=== PATIENT | male | born 1970 | race African-American/Black ===

== ENCOUNTER 2018-10-30 13:34 | Emergency (ER) | payer MEDICAID, SELFPAY ==
[~2018-10-30] VITALS: Ht 188 cm; Wt 68.0 kg
[2018-10-30] MEDS ORDERED: NKM (13:48)
[2018-10-30 13:58] VITALS: BP 129/79
--- NOTE | 2018-10-30 13:59 | NUR ---
ED Nurse Note: Pt has been experiencing penile white discharge with fishy odor x 1 week. AOx4, VSS [place]. Will cont to monitor.
[2018-10-30] MEDS ORDERED: Lidocaine 1% MPF 10mg/ml 5ml INJ ONE (14:00)
[2018-10-30] MEDS ORDERED: Azithromycin 250mg tab ORAL ONE (14:00)
--- NOTE | 2018-10-30 14:04 | Emergency Room Report ---
History of Present Illness General Chief Complaint: Male Urogenital Problems Source: Patient Present Illness HPI 48-year-old male with no significant past medical history here requesting to be tested for chlamydia and gonorrhea and is requesting prophylactic antibiotic treatment as he had recent exposure to an unknown sexually transmitted diseases. Patient is here with his significant other was also complaining of vaginal discharge. Patient is complaining of clear penile discharge denies dysuria urinary frequency. Denies fever and chills. Denies abdominal pain, nausea vomiting, chest pain, shortness of breath, and all other associated symptoms. Has not taken medication for his symptoms. Allergies: Coded Allergies: No Known Allergies (Unverified , 10/30/18) Patient History Past Medical History: see triage record Past Surgical History: unable to obtain Pertinent Family History: none Immunizations: UTD Reviewed Nursing Documentation: PMH: Agreed; PSxH: Agreed Review of Systems All Other Systems: negative except mentioned in HPI Physical Exam Vital Signs Date Time Temp Pulse Resp B/P (MAP) Pulse Ox O2 Delivery O2 Flow Rate FiO2 10/30/18 13:46 98.1 78 19 130/86 (101) 99 Room Air Sp02 EP Interpretation: reviewed, normal General Appearance: normal inspection, well appearing, no apparent distress Head: normocephalic, atraumatic Eyes: bilateral eye normal inspection, bilateral eye PERRL ENT: normal ENT inspection, hearing grossly normal, normal pharynx Neck: normal inspection, supple Respiratory: normal inspection, chest non-tender, lungs clear, no rhonchi, no wheezing Cardiovascular #1: normal inspection, regular rate, rhythm, no edema Gastrointestinal: normal inspection, non tender, soft Rectal: deferred Genitourinary: no CVA tenderness Musculoskeletal: back normal Neurologic: normal inspection, alert, oriented x3 Psychiatric: normal inspection, judgement/insight normal Skin: no rash Lymphatic: normal inspection, no adenopathy Medical Decision Making PA Attestation All diagnoses and treatment plans were reviewed and discussed with my supervising physician Dr. Kurtz Diagnostic Impression: Primary Impression: STD exposure ER Course 48-year-old male with no significant past medical history here requesting to be tested for chlamydia and gonorrhea and is requesting prophylactic antibiotic treatment as he had recent exposure to an unknown sexually transmitted diseases. Patient is here with his significant other was also complaining of vaginal discharge. Patient is complaining of clear penile discharge denies dysuria urinary frequency. Denies fever and chills. Denies abdominal pain, nausea vomiting, chest pain, shortness of breath, and all other associated symptoms. Has not taken medication for his symptoms. Ddx considered but are not limited to: vaginitis, yeast infection, BV, chlamydia , Gohnorrea, syphylis, HIV, herpes 1 or 2 Vital signs: are WNL, pt. is afebrile H&PE are most consistent with : STD exposure possibly gonorrhea or chlamydia ORDERS: UA, chlamydia and gonorrhea, Rocephin, azithromycin ED INTERVENTIONS: Rocephin IM and azithromycin were given DISCHARGE: At this time pt. is stable for d/c to home. Will provide printed patient care instructions, and any necessary prescriptions. Care plan and follow up instructions have been discussed with the patient prior to discharge. Pending results for chlamydia and gonorrhea follow-up with her primary care provider if symptoms continue if patient's significant other test is positive for trichomoniasis, patient will also be tested and treated. Last Vital Signs Date Time Temp Pulse Resp B/P (MAP) Pulse Ox O2 Delivery O2 Flow Rate FiO2 10/30/18 13:58 98.1 85 20 129/79 99 Room Air Disposition: HOME, SELF-CARE Condition: Stable Patient Instructions: Chlamydia, Male, Gonorrhea Additional Instructions: Take medication as directed follow-up with your primary care provider if symptoms do not improve Shivam Costello Oct 30, 2018 14:04
[2018-10-30 14:30] VITALS: BP 129/79
--- NOTE | 2018-10-30 14:30 | NUR ---
ER DISCHARGE NOTE: Patient is cleared to be discharged per ERMD, pt is aox4, on room air, with stable vital signs. pt was given dc and prescription instructions, pt was able to verbalize understanding, pt id band removed. pt is able to ambulate with steady gait. pt took all belongings.
[2018-10-30 14:37] LABS: APPEARANCE,URINE CLEAR; BILIRUBIN, URINE NEGATIVE (NEGATIVE); COLOR,URINE PALE YELLOW; GLUCOSE, URINE (UA) NEGATIVE (NEGATIVE); KETONES,URINE NEGATIVE (NEGATIVE); LEUKOCYTE ESTERASE ,URINE 1+ (NEGATIVE); NITRITE,URINE NEGATIVE (NEGATIVE); PH,URINE 6.5 (4.5-8.0); PROTEIN,URINE NEGATIVE (NEGATIVE); UROBILINOGEN,URINE NORMAL MG/DL (0.0-1.0)
== END 2018-10-30 14:30 | disposition home or self-care (01) ==
LOC: EMR 14:21
DX: R36.9 Urethral discharge, unspecified (principal); Z20.2 Contact with and (suspected) exposure to infections with a predominantly sexual mode of transmission
CPT/HCPCS: 81001; 87491; 87590; 96372; 96374; 99284; J0696; Q0144

== ENCOUNTER 2019-01-04 17:45 | Emergency (ER) | payer MEDICAID ==
[~2019-01-04] VITALS: Ht 188 cm; Wt 72.6 kg
[~2019-01-04 17:45] MED LIST: NKM
[2019-01-04 17:55] VITALS: BP 142/98
--- NOTE | 2019-01-04 17:55 | NUR ---
ED Nurse Note: Patient wheeled into ED accompanied by c/o fall, patient states that he fell while trying to get a basketball, states that the height of the fence was 10 feet tall, complains of generalized left sided body pain, unable to extend arm without pain. patient is alert and oriented x4, when patient sneezed, patient did have blood tinged output. will continue to monitor
--- NOTE | 2019-01-04 19:00 | NUR ---
HAND-OFF: Report given to ELBERT Pina
--- NOTE | 2019-01-04 19:27 | Diagnostic Imaging Report ---
Indication: Pain status post injury/trauma Technique: Continuous helical CT scanning of the head was performed utilizing automated exposure control without intravenous contrast material. Axial and coronal reconstructions were obtained. Comparison: None CT dose: Total DLP 1457.7 mGycm; CTDI vol 62 mGy Findings: There is no acute intracranial hemorrhage, mass effect or cortical edema. There is no shift of the midline structures. Johnson-white differentiation appears preserved. The ventricles, cisterns and sulci are within normal limits for age. There is soft tissue swelling of the left parietal scalp. There is no depressed skull fracture. Fractures of the left zygomatic arch and left lateral orbital wall are noted. Mucosal thickening versus fluid noted within the sphenoid sinuses and left ethmoid air cells and left maxillary sinus. Mastoid air cells clear. IMPRESSION: No evidence of acute intracranial hemorrhage, mass effect or cortical edema. Fracture of the left zygoma partially visualized. Please see dedicated reports of concurrent CT of the facial bones. This corresponds with the statrad preliminary report. The CT scanner at [facility] is accredited by the [employer] and the scans are performed using protocols designed to limit radiation exposure to as low as reasonably achievable to attain images of sufficient resolution adequate for diagnostic evaluation.
--- NOTE | 2019-01-04 19:31 | Diagnostic Imaging Report ---
Indication: Facial pain status post injury Technique: CT maxillofacial was performed utilizing automated exposure control without intravenous contrast material. Axial and coronal images were generated. CT dose: Total DLP 567.2 mGycm; CTDI vol 25.1 mGy Comparison: None Findings: There is an acute nondisplaced fracture through the left zygomatic arch. There is also acute fracture through the posterior wall of the left maxillary sinus with some adjacent gas in the soft tissues and fluid in the left maxillary sinus. Some fluid is also noted within left-sided ethmoid air cells. Globes are symmetric in appearance. There is no infiltration of the orbital fat bilaterally. Extraocular muscles and optic nerves are symmetric in appearance bilaterally. IMPRESSION: Acute nondisplaced fractures through the left zygomatic arch and posterior wall of the left maxillary sinus. This corresponds with the statrad preliminary report. The CT scanner at [facility] is accredited by the [employer] and the scans are performed using protocols designed to limit radiation exposure to as low as reasonably achievable to attain images of sufficient resolution adequate for diagnostic evaluation.
--- NOTE | 2019-01-04 19:32 | Emergency Room Report ---
History of Present Illness General Chief Complaint: Multiple Trauma/Fall Source: Patient Present Illness HPI This patient states that he fell about 10 feet. He was climbing a gait to get a basketball out of a tree and lost his balance. He states that he hit his head and has a headache. He also complains of a nosebleed. He complains of pain in his left upper arm, elbow and forearm. He denies chest pain or shortness of breath. He denies abdominal pain. He denies right arm or lower extremity pain. He denies loss of consciousness. He denies weakness. He denies tingling or numbness. He has no other complaints. Allergies: Coded Allergies: No Known Allergies (Unverified , 10/30/18) Patient History Past Medical History: none, see triage record Social History: Denies: smoking, alcohol use, drug use Reviewed Nursing Documentation: PMH: Agreed; PSxH: Agreed Nursing Documentation-PMH Past Medical History: No History, Except For Review of Systems All Other Systems: negative except mentioned in HPI Physical Exam Vital Signs Date Time Temp Pulse Resp B/P (MAP) Pulse Ox O2 Delivery O2 Flow Rate FiO2 01/04/19 17:50 97.9 73 18 142/98 (113) 99 Room Air Sp02 EP Interpretation: reviewed, normal General Appearance: no apparent distress, alert, GCS 15, non-toxic Head: normocephalic, other - Swelling over L. parietal area. Eyes: bilateral eye normal inspection, bilateral eye PERRL ENT: hearing grossly normal, normal pharynx, no angioedema, normal voice, other - +nosebleed Neck: full range of motion, supple/symm/no masses, tender lateral Respiratory: chest non-tender, lungs clear, normal breath sounds, no respiratory distress, no retraction, no accessory muscle use, speaking full sentences Cardiovascular #1: regular rate, rhythm, no edema Gastrointestinal: normal bowel sounds, non tender, soft, non-distended, no guarding, no rebound Rectal: deferred Musculoskeletal: back normal, tender - TTP over L. elbow, L. humerus and L. forearm. PT will not move elbow secondary to pain. Neurologic: alert, oriented x3, responsive, motor strength/tone normal, sensory intact, speech normal Psychiatric: judgement/insight normal, memory normal, mood/affect normal, no suicidal/homicidal ideation Skin: normal color Medical Decision Making Diagnostic Impression: Primary Impression: Scalp hematoma Additional Impressions: Closed head injury Maxillary sinus fracture Zygomatic fracture, left side, initial encounter for closed fracture Radial head fracture ER Course This patient fell from a [address] of the head shows no intracranial bleed. However, CT face did show a zygomatic bone fracture and a maxillary sinus fracture. These are nondisplaced. I did discuss the case with on-call facial plastics and this will heal on its own spontaneously. As a precaution I did give IV Ancef. I will place the patient on a course of oral antibiotics for prophylaxis. There is no surgical indication. The patient is also found to have a left radial head fracture. He was placed in a long-arm splint and sling. He was instructed to follow-up closely with orthopedics. Overall, the patient is well-appearing. He is given close return precautions and follow-up instructions. Laboratory Tests Test 01/04/19 18:56 White Blood Count 10.3 K/UL (4.8-10.8) Red Blood Count 4.83 M/UL (4.70-6.10) Hemoglobin 16.1 G/DL (14.2-18.0) Hematocrit 45.6 % (42.0-52.0) Mean Corpuscular Volume 94 FL (80-99) Mean Corpuscular Hemoglobin 33.4 PG (27.0-31.0) H Mean Corpuscular Hemoglobin Concent 35.4 G/DL (32.0-36.0) Red Cell Distribution Width 10.8 % (11.6-14.8) L Platelet Count 253 K/UL (150-450) Mean Platelet Volume 5.8 FL (6.5-10.1) L Neutrophils (%) (Auto) 79.5 % (45.0-75.0) H Lymphocytes (%) (Auto) 13.4 % (20.0-45.0) L Monocytes (%) (Auto) 6.1 % (1.0-10.0) Eosinophils (%) (Auto) 0.4 % (0.0-3.0) Basophils (%) (Auto) 0.6 % (0.0-2.0) Prothrombin Time 10.7 SEC (9.30-11.50) Prothrombin Time INR 1.0 (0.9-1.1) PTT 25 SEC (23-33) Sodium Level 145 MMOL/L (136-145) Potassium Level 4.0 MMOL/L (3.5-5.1) Chloride Level 107 MMOL/L (98-107) Carbon Dioxide Level 30 MMOL/L (21-32) Anion Gap 8 mmol/L (5-15) Blood Urea Nitrogen 11 mg/dL (7-18) Creatinine 1.0 MG/DL (0.55-1.30) Estimate Glomerular Filtration Rate > 60 mL/min (>60) Glucose Level 97 MG/DL (74-106) Calcium Level 9.2 MG/DL (8.5-10.1) Total Bilirubin 0.7 MG/DL (0.2-1.0) Aspartate Amino Transferase (AST) 17 U/L (15-37) Alanine Aminotransferase (ALT) 19 U/L (12-78) Alkaline Phosphatase 61 U/L (46-116) Total Protein 7.5 G/DL (6.4-8.2) Albumin 3.9 G/DL (3.4-5.0) Globulin 3.6 g/dL Albumin/Globulin Ratio 1.1 (1.0-2.7) Serum Alcohol < 3 mg/dL Last Vital Signs Date Time Temp Pulse Resp B/P (MAP) Pulse Ox O2 Delivery O2 Flow Rate FiO2 01/04/19 17:55 73 18 Room Air 01/04/19 17:55 97.9 142/98 99 Status: improved Disposition: HOME, SELF-CARE Condition: Improved Referrals: [facility]ERR[facility] (PCP) Natividad Hernandez DO Jan 04, 2019 19:32
[2019-01-04 19:39] LABS: BASOPHILS % (AUTO) 0.6 % (0.0-2.0); EOSINOPHILS % (AUTO) 0.4 % (0.0-3.0); HEMATOCRIT 45.6 % (42.0-52.0); HEMOGLOBIN 16.1 G/DL (14.2-18.0); LYMPHOCYTES % (AUTO) 13.4 % (20.0-45.0); MEAN CORPUSCULAR VOLUME 94 FL (80-99); MONOCYTES % (AUTO) 6.1 % (1.0-10.0); NEUTROPHILS % (AUTO) 79.5 % (45.0-75.0); PLATELET COUNT 253 K/UL (150-450); RED BLOOD COUNT 4.83 M/UL (4.70-6.10); RED CELL DISTRIBUTION WIDTH 10.8 % (11.6-14.8); WHITE BLOOD COUNT 10.3 K/UL (4.8-10.8)
[2019-01-04 19:40] LABS: ANION GAP 8 mmol/L (5-15); BLOOD UREA NITROGEN 11 mg/dL (7-18); CALCIUM 9.2 MG/DL (8.5-10.1); CARBON DIOXIDE 30 MMOL/L (21-32); CHLORIDE 107 MMOL/L (98-107); SODIUM 145 MMOL/L (136-145)
[2019-01-04 19:45] LABS: ALANINE AMINOTRANSFERASE 19 U/L (12-78); ALBUMIN 3.9 G/DL (3.4-5.0); ALBUMIN/GLOBULIN RATIO 1.1 (1.0-2.7); ALKALINE PHOSPHATASE 61 U/L (46-116); ASPARTATE AMINO TRANSFERASE 17 U/L (15-37); BILIRUBIN,TOTAL 0.7 MG/DL (0.2-1.0)
[2019-01-04] MEDS ORDERED: HYDROcodone/Acetamin 5/325 tab ORAL ONE (19:45)
[2019-01-04] MEDS ORDERED: Ondansetron ODT 8mg tab ORAL ONE (19:45)
--- NOTE | 2019-01-04 19:49 | Diagnostic Imaging Report ---
Indication: Neck pain status post injury Technique: CT cervical spine was performed utilizing automated exposure control without intravenous contrast material. Axial, sagittal and coronal images were generated. CT dose: Total DLP 399.1 mGycm; CTDI vol 12.9 mGy Comparison: None Findings: No acute cervical spine fracture is identified. There is straightening of the cervical lordosis, without evidence of spondylolisthesis. Mild degenerative changes noted at C5-C6 and C6-C7. No focus of significant/high-grade central canal stenosis. No focus of high-grade bony foraminal narrowing. Please note that the central cord, disks and nerve roots are better evaluated on MRI, which can be obtained for more sensitive evaluation as clinically indicated. No prevertebral hematoma or fluid collection. Thyroid normal in appearance. Mild scarring noted in the bilateral lung apices. IMPRESSION: No acute cervical spine fracture. Nonspecific straightening of the cervical lordosis without evidence of spondylolisthesis. This may be related to positioning or muscle spasm. Mild degenerative changes of the lower cervical spine. Salient findings correspond with the statrad preliminary report. The CT scanner at [facility] is accredited by the [employer] and the scans are performed using protocols designed to limit radiation exposure to as low as reasonably achievable to attain images of sufficient resolution adequate for diagnostic evaluation.
[2019-01-04] MEDS ORDERED: IBUPROFEN800 MG ORAL (20:33)
[2019-01-04] MEDS ORDERED: AUGMENTIN 875-1 EAC1 ORAL (20:33)
[2019-01-04] MEDS ORDERED: NORCO 5-325 TA1 EACH ORAL (20:33)
[2019-01-04 20:35] VITALS: BP 142/98
--- NOTE | 2019-01-04 20:35 | NUR ---
ER DISCHARGE NOTE: Patient is cleared to be discharged per ERMD, pt is aox4, on room air, with stable vital signs. pt was given dc and prescription instructions, pt was able to verbalize understanding, pt id band and iv site removed without complications. pt is able to ambulate with steady gait. pt took all belongings.
--- NOTE | 2019-01-05 08:55 | Diagnostic Imaging Report ---
Indication: Pain status post injury Technique: XRAY Elbow Min 3v L Comparison: None Findings: Bony mineralization within normal limits. There is an acute fracture of the radial head without significant displacement. No associated elbow joint dislocation. There is a small elbow joint effusion with elevation of the anterior fat pad. No radiopaque foreign body. IMPRESSION: Acute radial head fracture. This corresponds with the preliminary interpretation of the treating ER physician, as documented in the electronic medical record.
--- NOTE | 2019-01-05 08:56 | Diagnostic Imaging Report ---
Indication: Pain status post injury/trauma Technique: XRAY Humerus 2v L Comparison: None FINDINGS/IMPRESSION: Fracture of the radial head is noted, described on dedicated elbow radiographs. No humeral fracture is identified. Elbow and shoulder joints are maintained, without evidence of dislocation. Imaged portions of the left lung are clear. No radiopaque foreign body.
--- NOTE | 2019-01-05 08:58 | Diagnostic Imaging Report ---
Indication: Pain status post injury Technique: XRAY Forearm 2v L Comparison: None Findings/Impression: Bone mineralization within normal limits. Fracture of the radial head is again noted, as described on dedicated elbow radiographs. No additional acute fractures identified. No radiopaque foreign body.
== END 2019-01-04 20:35 | disposition home or self-care (01) ==
LOC: EMR 18:37
DX: S00.03XA Contusion of scalp, initial encounter (principal); S02.40DA Maxillary fracture, left side, initial encounter for closed fracture; S02.40FA Zygomatic fracture, left side, initial encounter for closed fracture; S52.122A Displaced fracture of head of left radius, initial encounter for closed fracture; M54.2 Cervicalgia; W14.XXXA Fall from tree, initial encounter; Y92.9 Unspecified place or not applicable
CPT/HCPCS: 29105; 36415; 70450; 70486; 72125; 73060; 73080; 73090; 80053; 85025; 85610; 85730; G0480; Q0162; Z7502; 99284

== ENCOUNTER 2019-01-15 21:40 | Emergency (ER) | payer MEDICAID ==
[~2019-01-15] VITALS: Ht 188 cm; Wt 68.0 kg
[~2019-01-15 21:40] MED LIST changes: +AUGMENTIN 875-1 EAC1 ORAL; +IBUPROFEN800 MG ORAL; +NORCO 5-325 TA1 EACH ORAL
[2019-01-15 22:02] VITALS: BP 128/80
--- NOTE | 2019-01-15 22:02 | NUR ---
ED Nurse Note: pt walked in to ED for f/u check up related to Fx to left arm. pt is alert x4. VSS
[2019-01-15 22:30] VITALS: BP 128/84
--- NOTE | 2019-01-15 22:30 | NUR ---
ER DISCHARGE NOTE: Patient is cleared to be discharged per ERMD, pt is aox4, on room air, with stable vital signs. pt was given dc instructions, pt was able to verbalize understanding, pt id band removed without complications. pt is able to ambulate with steady gait. pt took all belongings.
--- NOTE | 2019-01-15 22:33 | NUR ---
ED Nurse Note: new splint applied to left arm
--- NOTE | 2019-01-15 23:07 | Emergency Room Report ---
History of Present Illness General Chief Complaint: General Complaint Source: Patient Present Illness HPI 48-year-old male presents ED for evaluation. Is here for reevaluation of his left arm. States he was seen here about 2 weeks ago. Sustained a radial head fracture. Was placed in a splint with sling. States that he took off the sling because it was uncomfortable. Is here for follow-up because he does not have an orthopedic doctor to see. States pain is improved. Denies pain at this time. No other aggravating relieving factors. Denies any other associated symptoms Allergies: Coded Allergies: No Known Allergies (Unverified , 10/30/18) Patient History Past Medical History: none Past Surgical History: none Pertinent Family History: none Social History: Denies: smoking, alcohol use, drug use Immunizations: UTD Reviewed Nursing Documentation: PMH: Agreed; PSxH: Agreed Nursing Documentation-PMH Past Medical History: No Stated History Review of Systems All Other Systems: negative except mentioned in HPI Physical Exam Vital Signs Date Time Temp Pulse Resp B/P (MAP) Pulse Ox O2 Delivery O2 Flow Rate FiO2 01/15/19 21:56 98.2 58 16 122/80 (94) 98 01/15/19 22:02 Room Air 98 Sp02 EP Interpretation: reviewed, normal General Appearance: no apparent distress, alert, GCS 15, non-toxic Head: normocephalic, atraumatic Eyes: bilateral eye normal inspection, bilateral eye PERRL ENT: hearing grossly normal, normal pharynx, no angioedema, normal voice Neck: full range of motion, supple/symm/no masses Respiratory: chest non-tender, lungs clear, normal breath sounds, speaking full sentences Cardiovascular #1: regular rate, rhythm, no edema Cardiovascular #2: 2+ carotid (R), 2+ carotid (L), 2+ radial (R), 2+ radial (L) , 2+ dorsalis pedis (R), 2+ dorsalis pedis (L) Gastrointestinal: normal bowel sounds, non tender, soft, non-distended, no guarding, no rebound Rectal: deferred Genitourinary: normal inspection, no CVA tenderness Musculoskeletal: back normal, gait/station normal, decreased range of motion, tender - L elbow Neurologic: alert, oriented x3, responsive, motor strength/tone normal, sensory intact, speech normal Psychiatric: judgement/insight normal, memory normal, mood/affect normal, no suicidal/homicidal ideation Reflexes: 3+ bicep (R), 3+ bicep (L), 3+ tricep (R), 3+ tricep (L), 3+ knee (R) , 3+ knee (L) Lymphatic: no adenopathy Procedures Splinting Splinting : Consent: Verbal Splint: posterior long Pre-Proc Neuro Vasc Exam: normal Post-Proc Neuro Vasc Exam: normal Patient Tolerated: Well Complications: None Medical Decision Making Diagnostic Impression: Primary Impression: Radial head fracture Qualified Codes: S52.125D - Nondisplaced fracture of head of left radius, subsequent encounter for closed fracture with routine healing ER Course Hospital Course 48 yo M presents for reevaluation. s/p radial head fx Clinical course Patient placed on stretcher. on exam patient has some pain to L elbow. limited ROM. minimal swelling, no bruising I reviewed x-rays from previous visit which documents a radial head fracture. Patient does not have a PMD or orthopedist. Will provide orthopedic referrals. patient requires continued immobilization. Placed in long splint today. Safe for discharge for close outpatient follow-up Diagnosis - radial head fx Stable and discharged to home. Followup with ortho. Return to ED if symptoms recur/worsen. Last Vital Signs Date Time Temp Pulse Resp B/P (MAP) Pulse Ox O2 Delivery O2 Flow Rate FiO2 01/15/19 22:30 98.0 85 18 128/84 98 Room Air 01/15/19 22:02 98 Status: improved Disposition: HOME, SELF-CARE Condition: Stable [facility] 24 hour /7 days a week by Appointment Only [address] [facility] [id number] Patient Instructions: Radial Head Elbow Fracture With [facility] Varinder Olivas MD Jan 15, 2019 23:07
== END 2019-01-15 22:30 | disposition home or self-care (01) ==
LOC: EMR 22:10
DX: S52.125D Nondisplaced fracture of head of left radius, subsequent encounter for closed fracture with routine healing (principal); X58.XXXD Exposure to other specified factors, subsequent encounter
CPT/HCPCS: 29105; Z7502; 99283

== ENCOUNTER 2019-04-21 08:03 | Emergency (ER) | payer MEDICAID ==
[~2019-04-21] VITALS: Ht 188 cm; Wt 68.0 kg
--- NOTE | 2019-04-21 08:25 | NUR ---
ED Nurse Note: PT WALKED IN TO ED C/O WHITE PENILE DISCHARGE X1DAY AND NOTICED FOUL SMELL IN URINE. PT STATES MILD DISCOMFORT DURING URINATION BUT DENIES PAIN. PT STATES MILD SWELLING AROUND THE TIP. PT STATES HAVING THIS SYMPTOMS IN THE PAST. VSS, NAD. WILL CONTINUE TO MONITOR PATIENT.
[2019-04-21 08:35] VITALS: BP 134/88
[2019-04-21] MEDS ORDERED: DOXYCYCLINE MO100 MG ORAL (10:03)
[2019-04-21 10:15] VITALS: BP 119/71
[2019-04-21] MEDS ORDERED: Lidocaine 1% MPF 10mg/ml 5ml INJ ONE (10:15)
[2019-04-21] MEDS ORDERED: cefTRIAXone 1 GM in NS 55 ML IVPB ONE (10:15)
--- NOTE | 2019-04-21 10:21 | NUR ---
ER DISCHARGE NOTE: Patient is cleared to be discharged per ERMD, pt is aox4, on room air, with stable vital signs. pt was given dc and prescription instructions, pt was able to verbalize understanding, pt id band removed without complications. pt is able to ambulate with steady gait. pt took all belongings.
--- NOTE | 2019-04-22 08:23 | Emergency Room Report ---
History of Present Illness General Chief Complaint: Male Urogenital Problems Source: Patient Present Illness HPI Patient 48-year-old male presents after increased urethral discharge. He had reportedly had recent unprotected sex. Prior history of sexually transmitted disease in the past. Denies any testicular swelling or pain. Denies any fever. Had new sexual partner. Denies any other symptoms. He denies any flank pain. Denies any hematuria. Allergies: Coded Allergies: No Known Allergies (Unverified , 10/30/18) Patient History Past Medical History: see triage record Reviewed Nursing Documentation: PMH: Agreed; PSxH: Agreed Nursing Documentation-PMH Hx Cardiac Problems: No - Hemorrhoid Review of Systems All Other Systems: negative except mentioned in HPI Physical Exam Vital Signs Date Time Temp Pulse Resp B/P (MAP) Pulse Ox O2 Delivery O2 Flow Rate FiO2 04/21/19 08:20 97.9 72 18 134/88 (103) 98 Room Air General Appearance: well appearing, no apparent distress, alert, GCS 15 Head: normocephalic, atraumatic ENT: hearing grossly normal, normal voice Neck: full range of motion, supple Respiratory: no respiratory distress, speaking full sentences Cardiovascular #1: normal inspection Gastrointestinal: normal inspection Genitourinary: no CVA tenderness Neurologic: alert, motor strength/tone normal, optometry doctor III-XII nml as tested, normal gait Psychiatric: mood/affect normal Skin: no rash Medical Decision Making Diagnostic Impression: Primary Impression: Urethritis ER Course Patient presented for dysuria. Differential diagnosis include was not limited to urethritis, urinary tract infection, prostatitis among others. Patient has a benign exam and does not appear to require any imaging or laboratory testing at this time. Patient appears to have a sexually transmitted infection. He was given empiric treatment with Rocephin as well as prescription for doxycycline. He was advised to follow-up with outpatient STD testing and to use condoms patient is advised to follow-up with his primary care physician for recheck.. The patient is advised to follow up with primary care doctor in 1-2 days. Patient is advised to return if any worsening condition or if any changes in status that are concerning. This report is dictated with [employer] practice director software which may occasionally lead to discrepancies related to use of this software. Last Vital Signs Date Time Temp Pulse Resp B/P (MAP) Pulse Ox O2 Delivery O2 Flow Rate FiO2 04/21/19 10:15 98.7 71 18 119/71 98 Room Air Status: improved Disposition: HOME, SELF-CARE Condition: Stable Scripts Doxycycline Monohydrate* (DOXYCYCLINE MONOHYDRATE*) 100 Mg Capsule 100 MG ORAL Q12H, #14 CAP 0 Refills Prov: Blake Darnell MD 04/21/19 Patient Instructions: Urethritis, Adult Blake Darnell MD Apr 22, 2019 08:23
== END 2019-04-21 10:15 | disposition home or self-care (01) ==
LOC: EMR 08:48
DX: N34.2 Other urethritis (principal)
CPT/HCPCS: 96372; 96374; J0696; Z7502; 99284